=== PATIENT | male | born 1995 | race Caucasian/White ===

== ENCOUNTER 2017-01-20 12:50 | Emergency (ER) | payer MEDICAID ==
[2017-01-20 13:15] VITALS: BP 118/82; PULSE 79; RESP 18; TEMP 98.1; O2SAT 99
--- NOTE | 2017-01-20 13:54 | C.PDOC ---
History Of Present Illness 21 yr old male apparently sent to ER for evaluation by PMD. Patient states 3 days ago he was working out and dislocated his right shoulder. He states he went to [facility], [place], xrays were done and shoulder self reduced while he was there. Patient was placed in shoulder immobilizer and instructed to follow up with orthopedics. Patient has had prior shoulder dislocations (4-5 times). He has an ortho appointment on 02/12, however when he saw PMD today he was instructed to come to ER for evalation. He denies new injuries/dislocations , sensory changes, fever. Time Seen by Provider: 01/20/17 13:30 Chief Complaint (Nursing): Upper Extremity Problem/Injury History Per: Patient History/Exam Limitations: no limitations Onset/Duration Of Symptoms: Days (3) Current Symptoms Are (Timing): Better Severity: Mild Past Medical History Reviewed: Historical Data, Nursing Documentation, Vital Signs Vital Signs: Last Vital Signs Temp 98.1 F 01/20/17 13:08 Pulse 79 01/20/17 13:08 Resp 18 01/20/17 13:08 BP 118/82 01/20/17 13:08 Pulse Ox 99 01/20/17 14:08 - Medical History PMH: No Chronic Diseases Family History: States: No Known Family Hx - Social History Hx Alcohol Use: No Hx Substance Use: No - Immunization History Hx Tetanus Toxoid Vaccination: No Hx Influenza Vaccination: No Hx Pneumococcal Vaccination: No Review Of Systems Except As Marked, All Systems Reviewed And Found Negative. Constitutional: Negative for: Fever, Chills Cardiovascular: Negative for: Chest Pain Respiratory: Negative for: Shortness of Breath Musculoskeletal: Positive for: Shoulder Pain (Right ). Negative for: Neck Pain , Back Pain Neurological: Negative for: Weakness, Numbness Physical Exam - Physical Exam Appears: Well, Non-toxic, No Acute Distress Skin: Warm, Dry, No Rash Head: Atraumatic, Normacephalic Oral Mucosa: Moist Chest: Symmetrical, No Tenderness Cardiovascular: Rhythm Regular Respiratory: Normal Breath Sounds, No Rales, No Rhonchi, No Wheezing Extremity: Capillary Refill (<2 sec all digits ), No Deformity, Other (Right shoulder in shoulder immobilizer, no deformit/swelling/warmth/erythema) Neurological/Psych: Oriented x3, Normal Sensation Gait: Steady ED Course And Treatment O2 Sat by Pulse Oximetry: 99 (RA ) Pulse Ox Interpretation: Normal Progress Note: Explained to patient that his shoulder is not currently dislocated, and he already has orthopedics appt scheduled. Patient requesting ortho information, wants to be seen sooner than Sept. Follow up information for Dr. Gaines given, and patient also instructed to check with his insurance company for other orthopedic surgeons he can follow up with. Patient already has pain medications to take. He was instructed to return to ED if symptoms worsen. Disposition Counseled Patient/Family Regarding: Diagnosis, Need For Followup - Disposition Referrals: [facility] [Outside] [facility] [Outside] Rebeca Gaines MD [Staff Provider] - Disposition: HOME/ ROUTINE Disposition Time: 13:40 Condition: STABLE Additional Instructions: YOU NEED FOLLOW UP WITH ORTHOPEDICS WITHIN [address] GAINES'S OFFICE AND MAKE APPOINTMENT USE MOTRIN/TYLENOL NEEDED FOR PAIN RETURN TO ER IF SYMPTOMS WORSEN Instructions: Shoulder Dislocation (ED) Forms: [employer] (Divehi) Print Language: NAMIBIAN - POA Present On Arrival: None - Clinical Impression Clinical Impression: Recurrent dislocation, right shoulder - Scribe Statement The provider has reviewed the documentation as recorded by the Sameeribjoe Jeffrey Provider Attestation: All medical record entries made by the Sameeribjoe were at my direction and personally dictated by me. I have reviewed the chart and agree that the record accurately reflects my personal performance of the history, physical exam, medical decision making, and the department course for this patient. I have also personally directed, reviewed, and agree with the discharge instructions and disposition.
== END 2017-01-20 14:01 | disposition home or self-care (01) ==
LOC: C.ER 12:50
DX: M24.411 Recurrent dislocation, right shoulder (principal)